=== PATIENT | female | born 2000 | race Caucasian/White ===

== ENCOUNTER 2021-10-25 21:42 | Emergency (ER) | payer MEDICAID ==
[~2021-10-25] VITALS: Ht 167.6 cm; Wt 73.0 kg
[2021-10-25 21:47] VITALS: BP 132/82
== END 2021-10-25 23:51 | disposition home or self-care (01) ==
LOC: ER 21:42
DX: T51.0X1A Toxic effect of ethanol, accidental (unintentional), initial encounter (principal); F10.129 Alcohol abuse with intoxication, unspecified; R00.2 Palpitations; R11.10 Vomiting, unspecified; R03.0 Elevated blood-pressure reading, without diagnosis of hypertension; Y90.9 Presence of alcohol in blood, level not specified; Y92.252 Music hall as the place of occurrence of the external cause
CPT/HCPCS: 99283